=== PATIENT | female | born 1970 | race Caucasian/White ===

== ENCOUNTER 2020-05-28 13:18 | Emergency (ER) | payer OTHER ==
[~2020-05-28] VITALS: Ht 167.6 cm; Wt 59.9 kg
[2020-05-28] MEDS ORDERED: CIPRO500 MG PO (18:21)
[2020-05-28] MEDS ORDERED: PERCOCET 5-3251 EACH PO (18:25)
== END 2020-05-28 18:54 | disposition home or self-care (01) ==
LOC: ER 13:18
DX: S80.871A Other superficial bite, right lower leg, initial encounter (principal); W54.0XXA Bitten by dog, initial encounter; Y93.89 Activity, other specified; Y92.89 Other specified places as the place of occurrence of the external cause; Y99.8 Other external cause status; R55 Syncope and collapse; I95.89 Other hypotension